=== PATIENT | male | born 1985 | race African-American/Black ===

== ENCOUNTER 2019-09-20 08:43 | Inpatient (IN) | payer OTHER ==
[2019-09-20 09:25] VITALS: BMI 17.4
--- NOTE | 2019-09-20 10:21 | HP ---
CIWA Score Nausea/Vomitin-Mild Nausea/No Vomiting Muscle Tremors: 2 Anxiety: 4-Mod. Anxious/Guarded Agitation: 1-Slight > Activity Paroxysmal Sweats: 4-Forehead w/Sweat Beads Orientation: 0-Oriented Tacttile Disturbances: 0-None Auditory Disturbances: 0-None Visual Disturbances: 1-Very Mild Sensitivity Headache: 5-Severe CIWA-Ar Total Score: 18 - Admission Criteria OASAS Guidelines: Admission for Medically Managed Detox: Requires at least one of the followin. CIWA greater than 12 2. Seizures within the past 24 hours 3. Delirium tremens within the past 24 hours 4. Hallucinations within the past 24 hours 5. Acute intervention needed for co occurring medical disorder 6. Acute intervention needed for co occurring psychiatric disorder 7. Severe withdrawal that cannot be handled at a lower level of care (continued vomiting, continued diarrhea, abnormal vital signs) requiring intravenous medication and/or fluids 8. Admitting History and Physical - Admission Chief Complaint: " I want to get clean and get the alcohol out of my system by any means necessary to get back to work." History of Present Illness: 33 year old male with history of alcohol use disorder since 20 years old. Recently he's been drinking more. He endorses 2 pints of vodka daily and 2 6pk of beers daily. He also endorses numerous blackouts and last blacked out on . Pt here requesting detox from etoh use, latest use yesterday. He wishes to do detox and then be referred outpatient program. cannabis - 10 blunts/day, last used yesterday. cocaine 1.2 gms every 2 days, last used 09/05/19. Ecstasy every 3 days about 2-3 capsules per episode, last used 09/05/19 tobacco : 1/2 ppd since the age of [age] years old. PMHX : denies Psych : insomnia PSHx ; denies SHX : works for [employer] , [employer] truck, denies MVA History Source: Patient Limitations to Obtaining History: No Limitations - Past Surgical History Past Surgical History: Yes: None - Smoking History Smoking history: Current every day smoker Have you smoked in the past 12 months: Yes Aproximately how many cigarettes per day: 6 - Alcohol/Substance Use Hx Alcohol Use: Yes Number of Drinks Daily: 10 History of Substance Use: reports: Cocaine, Marijuana - Social History Usual Living Arrangement: Yes: Alone Do you think of yourself as: Straight/Heterosexual ADL: Independent Occupation: manufacturing worker History of Recent Travel: No Admission [facility] Allergies/Adverse Reactions: Allergies Allergy/AdvReac Type Severity Reaction Status Date / Time ibuprofen Allergy Severe Rash Verified 09/20/19 09:20 acetaminophen [From Tylenol] Allergy Hives Verified 09/20/19 09:20 Exam Limitations: No Limitations - Ebola screening Have you traveled outside of the country in the last 21 days: No (N) Have you had contact with anyone from an Ebola affected area: No Have you been sick,other than usual withdrawal symptoms: No Do you have a fever: No - Review of Systems Constitutional: Chills, Diaphoresis, Loss of Appetite EENT: reports: No Symptoms Reported Respiratory: reports: No Symptoms reported Cardiac: reports: No Symptoms Reported GI: reports: No Symptoms Reported : reports: No Symptoms Reported Musculoskeletal: reports: No Symptoms Reported Integumentary: reports: No Symptoms Reported Neuro: reports: No Symptoms reported Endocrine: reports: No Symptoms Reported Hematology: reports: No Symptoms Reported Psychiatric: reports: Judgement Intact, Mood/Affect Appropiate, Orientated x3 Other Systems: Reviewed and Negative Patient History - Patient Medical History Hx Anemia: No Hx Asthma: No Hx Chronic Obstructive Pulmonary Disease (COPD): No Hx Cancer: No Hx Cardiac Disorders: No Hx Congestive Heart Failure: No Hx Hypertension: No Hx Hypercholesterolemia: No HX Cerebrovascular Accident: No Hx Seizures: No Hx Dementia: No Hx Diabetes: No Hx Gastrointestinal Disorders: No Hx Liver Disease: No Hx Genitourinary Disorders: No Hx Sexually Transmitted Disorders: No Hx Renal Disease (ESRD): No Hx Thyroid Disease: No Hx Human Immunodeficiency Virus (HIV): No (NEGATIVE HX, last tested 2016) Hx Hepatitis C: No Hx Depression: No Hx Suicide Attempt: No (DENIES) Hx Bipolar Disorder: No Hx Schizophrenia: No - Patient Surgical History Past Surgical History: No Hx Neurologic Surgery: No Hx Cataract Extraction: No Hx Cardiac Surgery: No Hx Lung Surgery: No Hx Breast Surgery: No Hx Breast Biopsy: No Hx Abdominal Surgery: No Hx Appendectomy: No Hx Cholecystectomy: No Hx Genitourinary Surgery: No Hx Section: No Hx Orthopedic Surgery: No Hx Hysterectomy: No Anesthesia Reaction: No - PPD History Previous Implant?: Yes Documented Results: Negative w/o proof Implanted On Prior R Admission?: No Date: 07/07/17 Results: 0 mm PPD to be Administered?: Yes - Smoking Cessation Smoking history: Current every day smoker Have you smoked in the past 12 months: Yes Aproximately how many cigarettes per day: 6 Cigars Per Day: 0 Hx Chewing Tobacco Use: No Initiated information on smoking cessation: Yes 'Breaking Loose' booklet given: 09/20/19 - Substances abused Alcohol Substance route: Oral Frequency: Daily Amount used: 3-6 PACKS BEER, 2 PINTS OF VODKA Age of first use: 17 Date of last use: 09/20/19 Cocaine Substance route: Oral Frequency: 3-6 times per week Amount used: 2 GRAMS= $300 Age of first use: 23 Date of last use: 09/05/19 Marijuana/Hashish Substance route: Smoking Frequency: Daily Amount used: $300 Age of first use: 15 Date of last use: 09/19/19 Admission Physical Exam S - Vital Signs Vital Signs: Vital Signs - 24 hr 09/20/19 09:20 Temperature 97.1 F L Pulse Rate 83 Respiratory 18 Rate Blood Pressure 93/63 - Physical General Appearance: Yes: No Apparent Distress, Nourished, Appropriately Dressed , Alcohol on Breath, Tremorous, Irritable, Sweating, Anxious HEENTM: Yes: EOMI, Hearing grossly Normal, Normal ENT Inspection, Normocephalic , Normal Voice, NANDA, Pharynx Normal, Tm's normal, Other (right supraorbital laceration) Respiratory: Yes: Chest Non-Tender, Lungs Clear, Normal Breath Sounds, No Respiratory Distress, No Accessory Muscle Use Neck: Yes: No masses,lesions,Nodules, Supple, Trachea in good position Breast: Yes: Within Normal Limits Cardiology: Yes: Regular Rhythm, Regular Rate, S1, S2 Abdominal: Yes: Normal Bowel Sounds, Flat, Soft, Tenderness. No: Guarding, Rebound Genitourinary: Yes: Within Normal Limits Back: Yes: Normal Inspection Musculoskeletal: Yes: full range of Motion, Gait Steady, Pelvis Stable Extremities: Yes: Normal Capillary Refill, Normal Inspection Neurological: Yes: basic sciences professor II-XII NML intact, Fully Oriented, Alert, Motor Strength 5/5, Normal Mood/Affect, Normal Response Integumentary: Yes: Normal Color, Warm Lymphatic: Yes: Within Normal Limits - Diagnostic (1) Alcohol dependence with uncomplicated withdrawal Current Visit: Yes Status: Chronic (2) Cocaine dependence Current Visit: Yes Status: Chronic Qualifiers: Substance use status: uncomplicated Qualified Code(s): F14.20 - Cocaine dependence, uncomplicated (3) Cannabis dependence, uncomplicated Current Visit: Yes Status: Acute (4) Insomnia Current Visit: Yes Status: Acute Qualifiers: Insomnia type: unspecified Qualified Code(s): G47.00 - Insomnia, unspecified (5) Low body mass index (BMI) Current Visit: Yes Status: Chronic (6) Nicotine dependence Current Visit: Yes Status: Chronic Qualifiers: Nicotine product type: cigarettes Substance use status: uncomplicated Qualified Code(s): F17.210 - Nicotine dependence, cigarettes, uncomplicated Screened but not Admitted - Documentation of Visit Screened but not Admitted: No Breathalyzer - Breathalyzer Breathalyzer: 0.122 Urine Drug Screen - Test Device Lot number: [id number] Expiration date: 04/05/21 - Control Is test valid?: Yes - Results Drug screen NEGATIVE: No Urine drug screen results: THC-Marijuana Inpatient Rehab Admission - Rehab Decision to Admit Inpatient rehab admission?: No
[2019-09-20] MEDS ORDERED: ACETAMINOPHEN 325 MG TABLET (FP) PO PRN ×2 (10:28)
[2019-09-20] MEDS ORDERED: IBUPROFEN 400 MG TABLET (FP) PO PRN (10:28)
[2019-09-20] MEDS ORDERED: MAGNESIUM HYDROX 2400MG/30ML ORAL SUSPENSION 30 ML CUP PO PRN (10:28)
[2019-09-20] MEDS ORDERED: chlordiazePOXIDE HCL 25 MG CAPSULE PO PRN (10:28)
[2019-09-20] MEDS ORDERED: BISMUTH SUBSALICYLATE 262 MG/15 ML BTL PO PRN (10:28)
[2019-09-20] MEDS ORDERED: METHOCARBAMOL 500 MG TABLET PO PRN (10:28)
[2019-09-20] MEDS ORDERED: MAGNESIUM CITRATE 300 ML BOTTLE PO PRN (10:28)
[2019-09-20] MEDS ORDERED: MENTHOL/PHENOL 1 EACH UD MM PRN (10:28)
[2019-09-20] MEDS ORDERED: MAG HYDROX/AL HYDROX/SIMETH 30 ML UNIT-DOSE CUP PO PRN (10:28)
[2019-09-20] MEDS: chlordiazePOXIDE HCL 25 MG CAPSULE PO SCH ×3 (12:05→22:43)
[2019-09-20 14:30] LABS: HEMATOCRIT 34.4 % (35.4-49); HEMOGLOBIN 11.8 GM/dL (11.7-16.9); MCH 33.3 pg (25.7-33.7); MCHC 34.3 g/dl (32.0-35.9); MEAN CELL VOLUME 96.9 fl (80-96); MEAN PLT VOLUME 7.2 fl (7.5-11.1); PLATELET COUNT 395 K/MM3 (134-434); RBC 3.54 M/mm3 (4.00-5.60); RDW 14.2 % (11.9-15.9); WHITE BLOOD COUNT 10.6 K/mm3 (4.0-10.0)
[2019-09-20 14:45] LABS: ALBUMIN 3.9 g/dl (3.4-5.0); BILIRUBIN,TOTAL 0.7 mg/dL (0.2-1); CALCIUM 8.8 mg/dL (8.5-10.1); CREATININE 0.9 mg/dL (0.55-1.3); POTASSIUM 4.5 mmol/L (3.5-5.1); TOT PROT 6.8 g/dl (6.4-8.2)
[2019-09-20] MEDS ORDERED: QUEtiapine FUMARATE 100 MG TABLET (FP) PO SCH ×2 (22:00)
[2019-09-20] MEDS: THIAMINE HCL 100 MG TABLET (FP) PO SCH (22:43)
[2019-09-20] MEDS: QUEtiapine FUMARATE 50 MG TABLET PO SCH (22:43)
[2019-09-20] MEDS: MELATONIN 5 MG TABLETS PO PRN (22:44)
[2019-09-21] MEDS: chlordiazePOXIDE HCL 25 MG CAPSULE PO SCH ×4 (05:28→22:16)
--- NOTE | 2019-09-21 09:41 | PN ---
S CIWA - CIWA Score Nausea/Vomitin Muscle Tremors: 3 Anxiety: 4-Mod. Anxious/Guarded Agitation: 1-Slight > Activity Paroxysmal Sweats: 2 Orientation: 0-Oriented Tacttile Disturbances: 0-None Auditory Disturbances: 0-None Visual Disturbances: 1-Very Mild Sensitivity Headache: 2-Mild CIWA-Ar Total Score: 15 S Progress Note (SOAP) Subjective: 33 years old male admitted on 09/20/19 for alcohol withdrawal sx management treating with librium detox regimen reports trouble sleep through the night belsomra 5 mg po x 1 Objective: 09/21/19 09:40 Vital Signs Temperature 97.4 F L 09/21/19 06:17 Pulse Rate 61 09/21/19 06:17 Respiratory Rate 18 09/21/19 06:17 Blood Pressure 98/63 09/21/19 06:17 O2 Sat by Pulse Oximetry (%) Laboratory Last Values WBC 10.6 K/mm3 (4.0-10.0) H 09/20/19 10:55 RBC 3.54 M/mm3 (4.00-5.60) L 09/20/19 10:55 Hgb 11.8 GM/dL (11.7-16.9) 09/20/19 10:55 Hct 34.4 % (35.4-49) L 09/20/19 10:55 MCV 96.9 fl (80-96) H 09/20/19 10:55 MCH 33.3 pg (25.7-33.7) 09/20/19 10:55 MCHC 34.3 g/dl (32.0-35.9) 09/20/19 10:55 RDW 14.2 % (11.9-15.9) 09/20/19 10:55 Plt Count 395 K/MM3 (134-434) D 09/20/19 10:55 MPV 7.2 fl (7.5-11.1) L 09/20/19 10:55 Sodium 142 mmol/L (136-145) 09/20/19 10:55 Potassium 4.5 mmol/L (3.5-5.1) 09/20/19 10:55 Chloride 108 mmol/L (98-107) H 09/20/19 10:55 Carbon Dioxide 28 mmol/L (21-32) 09/20/19 10:55 Anion Gap 5 MMOL/L (8-16) L 09/20/19 10:55 BUN 13.0 mg/dL (7-18) 09/20/19 10:55 Creatinine 0.9 mg/dL (0.55-1.3) 09/20/19 10:55 Est GFR (CKD-EPI)AfAm 131.44 09/20/19 10:55 Est GFR (CKD-EPI)NonAf 113.41 09/20/19 10:55 Random Glucose 63 mg/dL (74-106) L 09/20/19 10:55 Calcium 8.8 mg/dL (8.5-10.1) 09/20/19 10:55 Total Bilirubin 0.7 mg/dL (0.2-1) 09/20/19 10:55 AST 38 U/L (15-37) H 09/20/19 10:55 ALT 34 U/L (13-61) 09/20/19 10:55 Alkaline Phosphatase 79 U/L (45-117) 09/20/19 10:55 Total Protein 6.8 g/dl (6.4-8.2) 09/20/19 10:55 Albumin 3.9 g/dl (3.4-5.0) 09/20/19 10:55 RPR Titer Nonreactive (NONREACTIVE) 09/20/19 10:55 lab noted Assessment: 09/21/19 09:40 alcohol withdrawal Plan: librium regimen
[2019-09-21] MEDS ORDERED: NICOTINE 14 MG/24 HOURS TOPICAL PATCH TD SCH (10:00)
[2019-09-21] MEDS: PRENATAL VITAMINS W/ FOLIC ACID TABLET (FP) PO SCH (10:32)
[2019-09-21] MEDS: QUEtiapine FUMARATE 50 MG TABLET PO SCH (22:16)
[2019-09-21] MEDS: THIAMINE HCL 100 MG TABLET (FP) PO SCH (22:16)
[2019-09-21] MEDS: MELATONIN 5 MG TABLETS PO PRN (22:18)
[2019-09-22] MEDS: chlordiazePOXIDE HCL 25 MG CAPSULE PO SCH ×4 (05:31→22:07)
[2019-09-22] MEDS: hydrOXYzine PAMOATE 25 MG CAPSULE (FP) PO PRN (05:32)
[2019-09-22] MEDS: NICOTINE 21 MG/24 HOURS TOPICAL PATCH TD SCH (10:04)
[2019-09-22] MEDS: PRENATAL VITAMINS W/ FOLIC ACID TABLET (FP) PO SCH (10:05)
--- NOTE | 2019-09-22 11:35 | PN ---
S CIWA - CIWA Score Nausea/Vomitin Muscle Tremors: 1-None Visible, but [place] Anxiety: 1-Mildly Anxious Agitation: 1-Slight > Activity Paroxysmal Sweats: 2 Orientation: 0-Oriented Tacttile Disturbances: 2-Mild Itch/Numbness/Burn Auditory Disturbances: 0-None Visual Disturbances: 0-None Headache: 0-None Present CIWA-Ar Total Score: 9 BHS Progress Note (SOAP) Subjective: interrupted sleep, hills, sweats, upset stomach , heavy smoker and want 21mg rebecca. patch. Objective: 09/22/19 11:32 Vital Signs Temperature 97.2 F L 09/22/19 09:44 Pulse Rate 91 H 09/22/19 09:44 Respiratory Rate 20 09/22/19 09:44 Blood Pressure 108/83 09/22/19 09:44 O2 Sat by Pulse Oximetry (%) Laboratory Tests 09/20/19 09/20/19 09/20/19 10:55 10:55 10:55 WBC 10.6 H RBC 3.54 L Hgb 11.8 Hct 34.4 L MCV 96.9 H MCH 33.3 MCHC 34.3 RDW 14.2 Plt Count 395 D MPV 7.2 L Sodium 142 Potassium 4.5 Chloride 108 H pt aox3 in nad ambulating Carbon Dioxide 28 Anion Gap 5 L BUN 13.0 Creatinine 0.9 Est GFR (CKD-EPI)AfAm 131.44 Est GFR (CKD-EPI)NonAf 113.41 Random Glucose 63 L Calcium 8.8 Total Bilirubin 0.7 AST 38 H ALT 34 Alkaline Phosphatase 79 Total Protein 6.8 Albumin 3.9 RPR Titer Nonreactive pt aox3 in nad ambulating Assessment: 09/22/19 11:33 withdrawal sx's Plan: cont. detox increase fluids increase rebecca patch to 21mg/d.
--- NOTE | 2019-09-22 13:01 | CONSULT ---
[facility] Psychiatric Consult - Data Date of interview: 09/22/19 Admission source: [facility] Identifying data: Revisit to [facility] and admission to [address] [place] [address] for this 33 y/o AA male self-referred for detoxification treatment. CAMILO issues : alcohol, cocaine, marihuana, nicotine. Patient is single without children, domiciled ( lives with his mother) and currently employed ([employer] [place] [employer]). Substance Abuse History: Discussed with the patient. Details in current [facility] report as follows : Smoking history: Current every day smoker. Have you smoked in the past 12 months: Yes. Aproximately how many cigarettes per day: 6. Cigars Per Day: 0. Hx Chewing Tobacco Use: No. Initiated information on smoking cessation: Yes. 'Breaking Loose' booklet given: 09/20/19. - Substances abused. Alcohol. Substance route: Oral. Frequency: Daily. Amount used: 3-6 PACKS BEER, 2 PINTS OF VODKA. Age of first use: 17. Date of last use: 09/20/19. Cocaine. Substance route: Oral. Frequency: 3-6 times per week. Amount used: 2 GRAMS= $300. Age of first use: 23. Date of last use : 09/05/19. Marijuana/Hashish. Substance route: Smoking. Frequency: Daily. Amount used: $300. Age of first use: 15. Date of last use: 09/19/19 Medical History: Patient endorses good general health. Psychiatric History: Patient denies history of psychiatric hospitalizations. Initial contact with a psychiatristoccurred at age 16 [facility] Got diagnosed, at the time, with ADHD and prescribed treatment with a psychostimulant (ritalin). Dropped out treatment after two years. No OPD care. Mr Almanzar reports chronic insomnia antd he is requesting quetiapine at bedtime. Denies history of suicide attempts. Physical/Sexual Abuse/Trauma History: Patient denies. Additional Comment: Urine drug screen results: THC-Marijuana. Noted. Mental Status Exam - Mental Status Exam Alert and Oriented to: Time, Place, Person Cognitive Function: Good Patient Appearance: Well Groomed Mood: Hopeful, Euthymic Affect: Appropriate, Normal Range Patient Behavior: Appropriate, Cooperative Speech Pattern: Clear, Appropriate Voice Loudness: Normal Thought Process: Intact, Goal Oriented Thought Disorder: Not Present Hallucinations: Denies Suicidal Ideation: Denies Homicidal Ideation: Denies Insight/Judgement: Poor Sleep: Poorly, Difficulty falling asleep Appetite: Good Gait/Station: Normal Psychiatric Findings - Problem List ([place] 1, 2,3) (1) Alcohol dependence with uncomplicated withdrawal Current Visit: Yes Status: Chronic (2) Cannabis dependence, uncomplicated Current Visit: Yes Status: Chronic (3) Cocaine dependence Current Visit: Yes Status: Chronic Qualifiers: Substance use status: uncomplicated Qualified Code(s): F14.20 - Cocaine dependence, uncomplicated (4) Nicotine dependence Current Visit: Yes Status: Chronic Qualifiers: Nicotine product type: cigarettes Substance use status: uncomplicated Qualified Code(s): F17.210 - Nicotine dependence, cigarettes, uncomplicated (5) Insomnia Current Visit: Yes Status: Chronic - Initial Treatment Plan Initial Treatment Plan: Psychoeducation. Sleep hygiene. Detoxification. Support. MAT services explained to patient : declines. AA meetings. Groups. Seroquel 100 mg po hs. Side effects/benefits discussed with the patient. Mr Almanzar is agreeable with plan of care. Observation.
[2019-09-22] MEDS: THIAMINE HCL 100 MG TABLET (FP) PO SCH (22:07)
[2019-09-22] MEDS: QUEtiapine FUMARATE 100 MG TABLET (FP) PO SCH (22:07)
[2019-09-22] MEDS: MELATONIN 5 MG TABLETS PO PRN (22:07)
[2019-09-23] MEDS ORDERED: chlordiazePOXIDE HCL 10 MG CAPSULE PO PRN
[2019-09-23] MEDS: chlordiazePOXIDE HCL 10 MG CAPSULE PO SCH ×4 (05:56→22:17)
[2019-09-23] MEDS: NICOTINE 21 MG/24 HOURS TOPICAL PATCH TD SCH (10:10)
[2019-09-23] MEDS: PRENATAL VITAMINS W/ FOLIC ACID TABLET (FP) PO SCH (10:10)
--- NOTE | 2019-09-23 11:07 | PN ---
S CIWA - CIWA Score Nausea/Vomitin-No Nausea/No Vomiting Muscle Tremors: None Anxiety: 2 Agitation: 0-Normal Activity Paroxysmal Sweats: 2 Orientation: 0-Oriented Tacttile Disturbances: 0-None Auditory Disturbances: 0-None Visual Disturbances: 0-None Headache: 2-Mild CIWA-Ar Total Score: 6 BHS Progress Note (SOAP) Subjective: c/o mild headache, sweats, and anxiety. Objective: 09/23/19 11:07 Vital Signs 09/23/19 09/23/19 09/23/19 03:30 06:29 09:22 Temperature 97.4 F L 97.4 F L Pulse Rate 81 87 Respiratory 18 16 16 Rate Blood Pressure 99/60 97/71 Laboratory Last Values WBC 10.6 K/mm3 (4.0-10.0) H 09/20/19 10:55 RBC 3.54 M/mm3 (4.00-5.60) L 09/20/19 10:55 Hgb 11.8 GM/dL (11.7-16.9) 09/20/19 10:55 Hct 34.4 % (35.4-49) L 09/20/19 10:55 MCV 96.9 fl (80-96) H 09/20/19 10:55 MCH 33.3 pg (25.7-33.7) 09/20/19 10:55 MCHC 34.3 g/dl (32.0-35.9) 09/20/19 10:55 RDW 14.2 % (11.9-15.9) 09/20/19 10:55 Plt Count 395 K/MM3 (134-434) D 09/20/19 10:55 MPV 7.2 fl (7.5-11.1) L 09/20/19 10:55 Sodium 142 mmol/L (136-145) 09/20/19 10:55 Potassium 4.5 mmol/L (3.5-5.1) 09/20/19 10:55 Chloride 108 mmol/L (98-107) H 09/20/19 10:55 Carbon Dioxide 28 mmol/L (21-32) 09/20/19 10:55 Anion Gap 5 MMOL/L (8-16) L 09/20/19 10:55 BUN 13.0 mg/dL (7-18) 09/20/19 10:55 Creatinine 0.9 mg/dL (0.55-1.3) 09/20/19 10:55 Est GFR (CKD-EPI)AfAm 131.44 09/20/19 10:55 Est GFR (CKD-EPI)NonAf 113.41 09/20/19 10:55 Random Glucose 63 mg/dL (74-106) L 09/20/19 10:55 Calcium 8.8 mg/dL (8.5-10.1) 09/20/19 10:55 Total Bilirubin 0.7 mg/dL (0.2-1) 09/20/19 10:55 AST 38 U/L (15-37) H 09/20/19 10:55 ALT 34 U/L (13-61) 09/20/19 10:55 Alkaline Phosphatase 79 U/L (45-117) 09/20/19 10:55 Total Protein 6.8 g/dl (6.4-8.2) 09/20/19 10:55 Albumin 3.9 g/dl (3.4-5.0) 09/20/19 10:55 RPR Titer Nonreactive (NONREACTIVE) 09/20/19 10:55 Labs noted. Assessment: 09/23/19 11:07 AOX3, in no acute respiratory distress. Full ROM, ambulating in the unit. Withdrawal symptoms. Plan: continue detox. Increase fluids.
[2019-09-23] MEDS: THIAMINE HCL 100 MG TABLET (FP) PO SCH (22:16)
[2019-09-23] MEDS: QUEtiapine FUMARATE 100 MG TABLET (FP) PO SCH (22:16)
[2019-09-23] MEDS: MELATONIN 5 MG TABLETS PO PRN (22:17)
[2019-09-23] MEDS: hydrOXYzine PAMOATE 25 MG CAPSULE (FP) PO PRN (22:17)
[2019-09-24] MEDS: chlordiazePOXIDE HCL 10 MG CAPSULE PO SCH ×2 (05:33→17:43)
[2019-09-24] MEDS: hydrOXYzine PAMOATE 25 MG CAPSULE (FP) PO PRN ×2 (05:33→12:24)
[2019-09-24] MEDS: NICOTINE 21 MG/24 HOURS TOPICAL PATCH TD SCH (10:04)
[2019-09-24] MEDS: PRENATAL VITAMINS W/ FOLIC ACID TABLET (FP) PO SCH (10:04)
--- NOTE | 2019-09-24 10:36 | PN ---
[facility] CIWA - CIWA Score Nausea/Vomitin-No Nausea/No Vomiting Muscle Tremors: 1-None Visible, but [place] Anxiety: 2 Agitation: 0-Normal Activity Paroxysmal Sweats: No Perspiration Orientation: 0-Oriented Tacttile Disturbances: 0-None Auditory Disturbances: 0-None Visual Disturbances: 0-None Headache: 0-None Present CIWA-Ar Total Score: 3 BHS Progress Note (SOAP) Subjective: 33 years old male admitted on 09/20/19 for alcohol withdrawal sx management treating with librium detox regimen feeling better today requests to be seen by a psychiatrist that he is taking seroquel 200 mg po every day health teaching that detox regimen mixing with seroquel may have adverse consequences encourage the patient returning to [facility] and continuing 200 mg po of seroquel Objective: 09/24/19 10:42 Vital Signs Temperature 97.0 F L 09/24/19 09:11 Pulse Rate 85 09/24/19 09:11 Respiratory Rate 16 09/24/19 09:11 Blood Pressure 104/78 09/24/19 09:11 O2 Sat by Pulse Oximetry (%) Laboratory Last Values WBC 10.6 K/mm3 (4.0-10.0) H 09/20/19 10:55 RBC 3.54 M/mm3 (4.00-5.60) L 09/20/19 10:55 Hgb 11.8 GM/dL (11.7-16.9) 09/20/19 10:55 Hct 34.4 % (35.4-49) L 09/20/19 10:55 MCV 96.9 fl (80-96) H 09/20/19 10:55 MCH 33.3 pg (25.7-33.7) 09/20/19 10:55 MCHC 34.3 g/dl (32.0-35.9) 09/20/19 10:55 RDW 14.2 % (11.9-15.9) 09/20/19 10:55 Plt Count 395 K/MM3 (134-434) D 09/20/19 10:55 MPV 7.2 fl (7.5-11.1) L 09/20/19 10:55 Sodium 142 mmol/L (136-145) 09/20/19 10:55 Potassium 4.5 mmol/L (3.5-5.1) 09/20/19 10:55 Chloride 108 mmol/L (98-107) H 09/20/19 10:55 Carbon Dioxide 28 mmol/L (21-32) 09/20/19 10:55 Anion Gap 5 MMOL/L (8-16) L 09/20/19 10:55 BUN 13.0 mg/dL (7-18) 09/20/19 10:55 Creatinine 0.9 mg/dL (0.55-1.3) 09/20/19 10:55 Est GFR (CKD-EPI)AfAm 131.44 09/20/19 10:55 Est GFR (CKD-EPI)NonAf 113.41 09/20/19 10:55 Random Glucose 63 mg/dL (74-106) L 09/20/19 10:55 Calcium 8.8 mg/dL (8.5-10.1) 09/20/19 10:55 Total Bilirubin 0.7 mg/dL (0.2-1) 09/20/19 10:55 AST 38 U/L (15-37) H 09/20/19 10:55 ALT 34 U/L (13-61) 09/20/19 10:55 Alkaline Phosphatase 79 U/L (45-117) 09/20/19 10:55 Total Protein 6.8 g/dl (6.4-8.2) 09/20/19 10:55 Albumin 3.9 g/dl (3.4-5.0) 09/20/19 10:55 RPR Titer Nonreactive (NONREACTIVE) 09/20/19 10:55 lab noted Assessment: 09/24/19 10:42 alcohol withdrawal Plan: librium regimen
--- NOTE | 2019-09-24 15:55 | PN ---
Psychiatric Progress Note Vital Signs: Vital Signs Period Temp Pulse Resp BP Sys/Bai Pulse Ox Last 24 Hr 97.0 F-98.7 F 85-112 16-18 92-114/60-80 Date of Session: 09/24/19 Chief Complaint:: "i'm having trouble sleeping." HPI: Patient admitted to for CAMILO issues : alcohol, cocaine, marihuana, nicotine. Patient continues to report poor sleep. ROS: Patient alert +oriented X3. Current Medications: Active Medications Generic Name Dose Route Start Last Admin Trade Name Freq PRN Reason Stop Dose Admin Al Hydroxide/Mg Hydroxide 30 ml 09/20/19 10:28 Mylanta Oral Suspension - PO Q6H PRN DYSPEPSIA Bismuth Subsalicylate 30 ml 09/20/19 10:28 Pepto-Bismol Liquid - PO Q1H PRN DIARRHEA Chlordiazepoxide HCl 10 mg 09/24/19 05:00 09/24/19 05:33 Librium - PO 09/24/19 17:01 10 mg Q12H NURY Administration Chlordiazepoxide HCl 10 mg 09/25/19 05:00 Librium - PO 09/25/19 05:01 ONCE@0500 ONE Eucalyptus/Menthol/Phenol/Sorbitol 1 each 09/20/19 10:28 Cepastat Lozenge - MM 09/26/19 10:28 Q4H PRN SORE THROAT Hydroxyzine Pamoate 25 mg 09/20/19 10:28 09/24/19 12:24 Vistaril - PO 09/26/19 10:28 25 mg Q6H PRN Administration For Anxiety Magnesium Citrate 300 ml 09/20/19 10:28 Citroma - PO Q48H PRN CONSTIPATION Magnesium Hydroxide 30 ml 09/20/19 10:28 Milk Of Magnesia - PO PRN PRN CONSTIPATION Melatonin 10 mg 09/24/19 22:00 Melatonin PO HS PRN INSOMNIA Nicotine 21 mg 09/22/19 10:00 09/24/19 10:04 Nicoderm Patch - TD 21 mg DAILY NURY Administration Multivit/Folic Acid/Iron 1 tab 09/21/19 10:00 09/24/19 10:04 Vitamins (Sjr) - PO 1 tab DAILY NURY Administration Quetiapine Fumarate 150 mg 09/24/19 22:00 Seroquel - PO HS NURY Thiamine HCl 100 mg 09/20/19 22:00 09/23/19 22:16 Vitamin B1 - PO 100 mg HS NURY Administration Medication(s) Change(s): Yes. Will d/c Seroquel 100mg HS + Melatonin 5mg HS PRN. Will order Seroquel 150mg HS + Melatonin 10mg HS. Current Side Effect: No Lab tests ordered: No Lab tests reviewed: Yes Provider note:: Patient seen by Dr. Duarte. Dr. Duarte note read and appreciated. Patient reports poor sleep despite accepting seroquel 100mg. Will d /c seroquel 100mg and Melatonin 5mg HS. Will order Seroquel 150mg HS + Melatonin 10mg HS. Patient also educated on the importance of proper sleep hygiene. Patient satisified and receptive to feedback. Benefits and side effects discussed. Verbal consent given. Total face to face time:: 20 Mental Status Exam - Mental Status Exam Alert and Oriented to: Time, Place, Person Cognitive Function: Good Patient Appearance: Well Groomed Mood: Euthymic Affect: Mood Congruent Patient Behavior: Appropriate, Cooperative Speech Pattern: Clear Voice Loudness: Normal Thought Process: Intact, Goal Oriented Thought Disorder: Not Present Hallucinations: Denies Suicidal Ideation: Denies Homicidal Ideation: Denies Insight/Judgement: Poor Sleep: Poorly Appetite: Fair Muscle strength/Tone: Normal Gait/Station: Normal Psychiatric Treatment Plan - Problem List (1) Alcohol dependence with uncomplicated withdrawal Current Visit: Yes (2) Cannabis dependence, uncomplicated Current Visit: Yes (3) Cocaine dependence Current Visit: Yes Qualifiers: Substance use status: uncomplicated Qualified Code(s): F14.20 - Cocaine dependence, uncomplicated (4) Insomnia Current Visit: Yes (5) Nicotine dependence Current Visit: Yes Qualifiers: Nicotine product type: cigarettes Substance use status: uncomplicated Qualified Code(s): F17.210 - Nicotine dependence, cigarettes, uncomplicated
[2019-09-24] MEDS ORDERED: PETROLATUM, WHITE 30 GM TUBE TP SCH (17:00)
[2019-09-24] MEDS: THIAMINE HCL 100 MG TABLET (FP) PO SCH (21:45)
[2019-09-24] MEDS ORDERED: QUEtiapine FUMARATE 50 MG TABLET PO SCH (22:00)
[2019-09-24] MEDS ORDERED: MELATONIN 5 MG TABLETS PO PRN (22:00)
[2019-09-25] MEDS ORDERED: chlordiazePOXIDE HCL 10 MG CAPSULE PO ONE (05:00)
[2019-09-25] MEDS: hydrOXYzine PAMOATE 25 MG CAPSULE (FP) PO PRN (05:06)
[2019-09-25 09:14] VITALS: BP 120/82; PULSE 116; TEMP 96.4
--- NOTE | 2019-09-25 11:10 | DS ---
[facility] Detox Discharge Summary Admission Date: 09/20/19 Discharge Date: 09/25/19 - History Present History: Alcohol Dependence Additional Comments: 33 years old male admitted on 09/20/19 for alcohol withdrawal sx management treated with librium detox regimen patient has completed librium regimen and tolerated well alert orientedf x 3 seen by psychiatrist resume seroquel 100 mg po daily respiratory clear lungs bilaterally on auscultation skin warm and dry abdomen soft flat no rebound tenderness - Physical Exam Results Vital Signs: Vital Signs Temperature 96.4 F L 09/25/19 09:14 Pulse Rate 116 H 09/25/19 09:14 Respiratory Rate 09/25/19 09:14 Blood Pressure 120/82 09/25/19 09:14 O2 Sat by Pulse Oximetry (%) Pertinent Admission Physical Exam Findings: alcohol withdrawal Laboratory Last Values WBC 10.6 K/mm3 (4.0-10.0) H 09/20/19 10:55 RBC 3.54 M/mm3 (4.00-5.60) L 09/20/19 10:55 Hgb 11.8 GM/dL (11.7-16.9) 09/20/19 10:55 Hct 34.4 % (35.4-49) L 09/20/19 10:55 MCV 96.9 fl (80-96) H 09/20/19 10:55 MCH 33.3 pg (25.7-33.7) 09/20/19 10:55 MCHC 34.3 g/dl (32.0-35.9) 09/20/19 10:55 RDW 14.2 % (11.9-15.9) 09/20/19 10:55 Plt Count 395 K/MM3 (134-434) D 09/20/19 10:55 MPV 7.2 fl (7.5-11.1) L 09/20/19 10:55 Sodium 142 mmol/L (136-145) 09/20/19 10:55 Potassium 4.5 mmol/L (3.5-5.1) 09/20/19 10:55 Chloride 108 mmol/L (98-107) H 09/20/19 10:55 Carbon Dioxide 28 mmol/L (21-32) 09/20/19 10:55 Anion Gap 5 MMOL/L (8-16) L 09/20/19 10:55 BUN 13.0 mg/dL (7-18) 09/20/19 10:55 Creatinine 0.9 mg/dL (0.55-1.3) 09/20/19 10:55 Est GFR (CKD-EPI)AfAm 131.44 09/20/19 10:55 Est GFR (CKD-EPI)NonAf 113.41 09/20/19 10:55 Random Glucose 63 mg/dL (74-106) L 09/20/19 10:55 Calcium 8.8 mg/dL (8.5-10.1) 09/20/19 10:55 Total Bilirubin 0.7 mg/dL (0.2-1) 09/20/19 10:55 AST 38 U/L (15-37) H 09/20/19 10:55 ALT 34 U/L (13-61) 09/20/19 10:55 Alkaline Phosphatase 79 U/L (45-117) 09/20/19 10:55 Total Protein 6.8 g/dl (6.4-8.2) 09/20/19 10:55 Albumin 3.9 g/dl (3.4-5.0) 09/20/19 10:55 RPR Titer Nonreactive (NONREACTIVE) 09/20/19 10:55 lab noted - Treatment Hospital Course: Detox Protocol Followed, Detoxed Safely, Responded well, Discharged Condition Good, Rehab Referral Accepted Patient has Accepted a Rehab Referral to: [facility] - Medication Discharge Medications: Ambulatory Orders Quetiapine Fumarate [Seroquel -] 50 tab PO HS 03/07/18 Quetiapine Fumarate [Seroquel -] 100 mg PO HS #30 tablet 09/22/19 - Diagnosis (1) Alcohol dependence with uncomplicated withdrawal Status: Acute (2) Nicotine dependence Status: Acute Qualifiers: Nicotine product type: cigarettes Substance use status: in withdrawal Qualified Code(s): F17.213 - Nicotine dependence, cigarettes, with withdrawal (3) Substance induced mood disorder Status: Suspected - AMA Did Patient Leave Against Medical Advice: No CIWA Score - CIWA Score Nausea/Vomitin-No Nausea/No Vomiting Muscle Tremors: None Anxiety: 1-Mildly Anxious Agitation: 0-Normal Activity Paroxysmal Sweats: No Perspiration Orientation: 0-Oriented Tacttile Disturbances: 0-None Auditory Disturbances: 0-None Visual Disturbances: 0-None Headache: 0-None Present CIWA-Ar Total Score: 1
--- NOTE | 2019-09-30 11:49 | PN ---
[facility] Progress Note Note: Psychiatry Attending's note : Patient called for the second time. Reason : he requests that script for seroquel be re-routed to his pharmacy. It appears that Mr Almanzar did not pick his prescriptions from [facility] on discharge. Chart reviewed. Medication verified. Intervention : Seroquel 100 mg po hs (tab # 30). Script sent electronically to [id number] # [id number].
== END 2019-09-25 11:26 | disposition home or self-care (01) | DRG 774 ==
LOC: YASAS 08:43 → Y3N 11:14
PROVIDERS: ADMIT Allergy & Immunology; ATTEND Allergy & Immunology
PROC: HZ2ZZZZ Detoxification Services for Substance Abuse Treatment (ICD-10-PCS; principal; 2019-09-20)
DX: F10.230 Alcohol dependence with withdrawal, uncomplicated (principal); F12.20 Cannabis dependence, uncomplicated; F14.20 Cocaine dependence, uncomplicated; F17.210 Nicotine dependence, cigarettes, uncomplicated; F19.24 Other psychoactive substance dependence with psychoactive substance-induced mood disorder; G47.00 Insomnia, unspecified; R63.6 Underweight; Z68.1 Body mass index [BMI] 19.9 or less, adult; Z88.6 Allergy status to analgesic agent
CPT/HCPCS: 36415; 80053; 85027; 86593